=== PATIENT | male | born 1970 | race Two or more races ===

== ENCOUNTER 2021-12-16 07:02 | Emergency (ER) | payer OTHER ==
[2021-12-16 07:16] VITALS: TEMP 97.7; BMI 26.6
[2021-12-16] MEDS ORDERED: SODIUM CHLORIDE 0.9% 500 ML INFUS.BAG IV ONE ×2 (07:42→09:12)
[2021-12-16] MEDS ORDERED: ONDANSETRON 4 MG/2 ML VIAL IVPB ONE (07:42)
[2021-12-16] MEDS ORDERED: KETOROLAC TROMETHAMINE 15 MG/ML VIAL IM ONE (07:42)
[2021-12-16] MEDS ORDERED: ACETAMINOPHEN 1000 MG/100 ML BAG IVPB ONE (07:42)
[2021-12-16] MEDS ORDERED: ONDANSETRON 4 MG/2 ML VIAL ONE (08:01)
[2021-12-16] MEDS ORDERED: ACETAMINOPHEN INJECTION 100 ML IVPB ONE (08:01)
[2021-12-16 08:11] LABS: BASO % 0.4 % (0-2.0); EOS % 0.9 % (0-4.5); HEMOGLOBIN 12.2 GM/dL (11.7-16.9); LYMPH % 21.6 % (8-40); MCH 26.2 pg (25.7-33.7); MEAN CELL VOLUME 79.4 fl (80-96); MEAN PLT VOLUME 7.7 fl (7.5-11.1); MONO % 5.2 % (3.8-10.2); NEUT % 71.9 % (42.8-82.8); PLATELET COUNT 185 10^3/uL (134-434); RBC 4.66 M/mm3 (4.00-5.60); RDW 15.3 % (11.9-15.9); WHITE BLOOD COUNT 6.1 K/mm3 (4.0-10.0)
[2021-12-16 08:18] LABS: EPI CELLS 1 /uL (0-25.1); HYALINE CASTS 0 /uL (0-3.1); URINE APPEARANCE CLEAR; URINE BACTERIA 0 /uL (0-1359); URINE BILIRUBIN NEGATIVE (NEGATIVE); URINE COLOR YELLOW; URINE GLUCOSE (UA) NEGATIVE (NEGATIVE); URINE KETONE NEGATIVE (NEGATIVE); URINE LEUK ESTERASE NEGATIVE (NEGATIVE); URINE NITRITE NEGATIVE (NEGATIVE); URINE PROTEIN NEGATIVE (NEGATIVE); URINE RBC 121 /uL (0-23.9); URINE UROBILINOGEN 0.2 mg/dL (0.2-1.0); URINE WBC 2 /uL (0-25.8)
[2021-12-16 08:30] LABS: CALCIUM 8.9 mg/dL (8.5-10.1)
[2021-12-16 08:31] LABS: ALBUMIN 3.9 g/dl (3.4-5.0); BLOOD UREA NITROGEN 15.3 mg/dL (7-18)
[2021-12-16 08:34] LABS: CREATININE 1.5 mg/dL (0.55-1.3)
[2021-12-16 08:36] LABS: BILIRUBIN,TOTAL 0.5 mg/dL (0.2-1); TOT PROT 7.4 g/dl (6.4-8.2)
[2021-12-16 11:17] VITALS: BP 138/84; PULSE 85
[2021-12-16] MEDS ORDERED: KETOROLAC TROMETHAMINE 15 MG/ML VIAL IVPUSH ONE (11:53)
[2021-12-16] MEDS ORDERED: KETOROLAC TROMETHAMINE 15 MG/ML VIAL ONE (11:58)
== END 2021-12-16 13:29 | disposition home or self-care (01) ==
LOC: JER 07:02
PROC: 3E0333Z Introduction of Anti-inflammatory into Peripheral Vein, Percutaneous Approach (ICD-10-PCS; principal; 2021-12-16)
PROC: 3E033GC Introduction of Other Therapeutic Substance into Peripheral Vein, Percutaneous Approach (ICD-10-PCS; 2021-12-16)
PROC: 3E033GC Introduction of Other Therapeutic Substance into Peripheral Vein, Percutaneous Approach (ICD-10-PCS; 2021-12-16)
DX: R10.30 Lower abdominal pain, unspecified (principal); N28.89 Other specified disorders of kidney and ureter
CPT/HCPCS: 36415; 74176-TC; 74177-TC; 80053; 81003; 83690; 85025; 87086; 99284-25

== ENCOUNTER 2021-12-18 22:11 | Emergency (ER) | payer OTHER ==
[2021-12-18 22:31] VITALS: BP 142/85; PULSE 81; TEMP 98.1; BMI 29.3
[2021-12-19] MEDS ORDERED: ACETAMINOPHEN 325 MG TABLET (FP) PO ONE (00:35)
[2021-12-19] MEDS ORDERED: KETOROLAC TROMETHAMINE 30 MG/1 ML VIAL IM ONE (00:35)
[2021-12-19] MEDS ORDERED: KETOROLAC TROMETHAMINE 30 MG/1 ML VIAL ONE (01:12)
[2021-12-19] MEDS ORDERED: ACETAMINOPHEN 325 MG TABLET (FP) ONE (01:12)
== END 2021-12-19 02:31 | disposition home or self-care (01) ==
LOC: JER 22:11
PROC: 3E0233Z Introduction of Anti-inflammatory into Muscle, Percutaneous Approach (ICD-10-PCS; principal; 2021-12-18)
DX: R10.31 Right lower quadrant pain (principal)
CPT/HCPCS: 99284-25

== ENCOUNTER 2022-02-08 20:43 | Inpatient (IN) | payer OTHER ==
[2022-02-08 21:01] VITALS: BMI 28.0
[2022-02-08 22:44] LABS: BASO % 0.6 % (0-2.0); EOS % 1.1 % (0-4.5); HEMATOCRIT 32.9 % (35.4-49); HEMOGLOBIN 11.2 GM/dL (11.7-16.9); LYMPH % 27.7 % (8-40); MEAN CELL VOLUME 76.3 fl (80-96); MEAN PLT VOLUME 7.4 fl (7.5-11.1); MONO % 10.2 % (3.8-10.2); NEUT % 60.4 % (42.8-82.8); PLATELET COUNT 254 10^3/uL (134-434); RBC 4.31 M/mm3 (4.00-5.60); RDW 15.1 % (11.9-15.9); WHITE BLOOD COUNT 5.7 K/mm3 (4.0-10.0)
[2022-02-08] MEDS ORDERED: morphine CARPU-JECT 2 MG/1 ML DISP.SYRIN IVPUSH ONE (22:57)
[2022-02-08 23:04] LABS: ALBUMIN 3.6 g/dl (3.4-5.0); CALCIUM 8.9 mg/dL (8.5-10.1)
[2022-02-08 23:05] LABS: BLOOD UREA NITROGEN 10.2 mg/dL (7-18)
[2022-02-08 23:08] LABS: CREATININE 1.4 mg/dL (0.55-1.3)
[2022-02-08 23:09] LABS: BILIRUBIN,TOTAL 0.6 mg/dL (0.2-1); TOT PROT 7.7 g/dl (6.4-8.2)
[2022-02-08 23:38] LABS: ERYTHROCYTE SEDIMENTATION RATE 58 mm/hr (0-20)
[2022-02-09] MEDS ORDERED: ALLOPURINOL 100 MG TABLET (FP) PO ONE (01:26)
[2022-02-09] MEDS ORDERED: COLCHICINE 0.6 MG CAP PO ONE (01:27)
[2022-02-09] MEDS ORDERED: COLCHICINE 0.6 MG TAB ONE (01:36)
[2022-02-09 01:44] LABS: BF WBC & OTHER NUCLEATED CELLS 34982 /mm3; BODY FLUID MESOTHELIAL 9 %; BODY FLUID MONOCYTE 4 %
[2022-02-09 01:51] LABS: URIC ACID 7.2 mg/dL (2.6-7.2)
[2022-02-09] MEDS ORDERED: VANCOMYCIN 1 GM in D5W (PRE-DOCKED) 1,000 MG/250 ML IVPB ONE (03:57)
[2022-02-09] MEDS ORDERED: VANCOMYCIN 1,000 MG in DEXTROSE 5%-WATER - 250 ML IVPB ONE (04:00)
[2022-02-09] MEDS ORDERED: VANCOMYCIN 1 GRAM (PRE-DOCKED) 1,000 MG/250 ML BAG IVPB ONE (04:11)
[2022-02-09] MEDS ORDERED: DEXTROSE 5%-WATER - 50 ML IVPB ONE ×2 (09:11→17:28)
[2022-02-09] MEDS ORDERED: PIPERACILLIN/TAZOBACTAM 3.375 GM VIAL IVPB ONE ×2 (09:11→17:28)
[2022-02-09] MEDS: SODIUM CHLORIDE 1,000 ML IV SCH ×2 (09:36→16:50)
[2022-02-09] MEDS: ENOXAPARIN NA (PORCINE) 40 MG/0.4 ML DISP.SYRIN SQ SCH (09:37)
[2022-02-09] MEDS ORDERED: PIPERACILLIN/TAZOB 3.375 GM 3.375 GM in DEXTROSE 5%-WATER - 50 ML IVPB SCH (10:00)
[2022-02-09 10:52] LABS: HEMATOCRIT 30.7 % (35.4-49); HEMOGLOBIN 10.3 GM/dL (11.7-16.9); MCH 25.7 pg (25.7-33.7); MCHC 33.7 g/dl (32.0-35.9); MEAN CELL VOLUME 76.4 fl (80-96); MEAN PLT VOLUME 7.7 fl (7.5-11.1); PLATELET COUNT 244 10^3/uL (134-434); RBC 4.02 M/mm3 (4.00-5.60); RDW 14.8 % (11.9-15.9); WHITE BLOOD COUNT 3.9 K/mm3 (4.0-10.0)
[2022-02-09] MEDS ORDERED: POTASSIUM CITRATE/CITRIC ACID 2 MEQ/ML ML PO SCH (11:00)
[2022-02-09 11:16] LABS: MAGNESIUM 2.4 mg/dL (1.8-2.4)
[2022-02-09 11:17] LABS: BLOOD UREA NITROGEN 12.2 mg/dL (7-18); CALCIUM 8.8 mg/dL (8.5-10.1)
[2022-02-09 11:18] LABS: ALBUMIN 3.2 g/dl (3.4-5.0)
[2022-02-09 11:19] LABS: CREATININE 1.3 mg/dL (0.55-1.3)
[2022-02-09 11:21] LABS: PHOSPHOROUS 3.8 mg/dL (2.5-4.9)
[2022-02-09 11:22] LABS: BILIRUBIN,TOTAL 0.5 mg/dL (0.2-1)
[2022-02-09] MEDS ORDERED: COLCHICINE 0.6 MG CAP PO SCH (13:52)
[2022-02-09] MEDS ORDERED: CITRIC ACID/SODIUM CITRATE 30 ML UNIT-DOSE CUP PO ONE (15:00)
[2022-02-09] MEDS ORDERED: COLCHICINE 0.6 MG TAB PO ONE (15:00)
[2022-02-09] MEDS: VANCOMYCIN 1 GRAM (PRE-DOCKED) 1,000 MG/250 ML BAG IVPB SCH (16:50)
[2022-02-09] MEDS ORDERED: ACETAMINOPHEN 325 MG TABLET (FP) PO PRN (16:59)
[2022-02-09] MEDS: PIPERACILLIN/TAZOB 3.375 GM 3.375 GM in DEXTROSE 5%-WATER - 50 ML IVPB SCH (19:57)
[2022-02-09] MEDS: COLCHICINE 0.6 MG TAB PO SCH (21:19)
[2022-02-10] MEDS ORDERED: PIPERACILLIN/TAZOBACTAM 3.375 GM VIAL IVPB ONE ×3 (01:28→16:34)
[2022-02-10] MEDS ORDERED: DEXTROSE 5%-WATER - 50 ML IVPB ONE ×3 (01:28→16:34)
[2022-02-10] MEDS: PIPERACILLIN/TAZOB 3.375 GM 3.375 GM in DEXTROSE 5%-WATER - 50 ML IVPB SCH ×3 (02:24→17:59)
[2022-02-10] MEDS ORDERED: VANCOMYCIN 1 GM in D5W (PRE-DOCKED) 1,000 MG/250 ML IVPB SCH (04:00)
[2022-02-10] MEDS: VANCOMYCIN 1 GRAM (PRE-DOCKED) 1,000 MG/250 ML BAG IVPB SCH ×2 (04:08→17:59)
[2022-02-10] MEDS: SODIUM CHLORIDE 1,000 ML IV SCH (09:03)
[2022-02-10] MEDS: COLCHICINE 0.6 MG TAB PO SCH (09:03)
[2022-02-10] MEDS: ENOXAPARIN NA (PORCINE) 40 MG/0.4 ML DISP.SYRIN SQ SCH (09:03)
[2022-02-10 09:44] LABS: BASO % 0.5 % (0-2.0); EOS % 2.8 % (0-4.5); HEMATOCRIT 32.6 % (35.4-49); HEMOGLOBIN 10.9 GM/dL (11.7-16.9); LYMPH % 30.8 % (8-40); MCH 25.6 pg (25.7-33.7); MCHC 33.3 g/dl (32.0-35.9); MEAN PLT VOLUME 7.6 fl (7.5-11.1); MONO % 8.6 % (3.8-10.2); NEUT % 57.3 % (42.8-82.8); PLATELET COUNT 248 10^3/uL (134-434); RBC 4.23 M/mm3 (4.00-5.60); RDW 14.9 % (11.9-15.9); WHITE BLOOD COUNT 3.6 K/mm3 (4.0-10.0)
[2022-02-10] MEDS ORDERED: PIPERACILLIN/TAZOB 3.375 GM 3.375 GM in DEXTROSE 5%-WATER - 50 ML IVPB SCH (10:00)
[2022-02-10 10:08] LABS: BLOOD UREA NITROGEN 12.7 mg/dL (7-18)
[2022-02-10 10:09] LABS: CALCIUM 8.7 mg/dL (8.5-10.1); MAGNESIUM 2.3 mg/dL (1.8-2.4)
[2022-02-10 10:13] LABS: CREATININE 1.3 mg/dL (0.55-1.3)
[2022-02-11] MEDS ORDERED: VANCOMYCIN 1 GM in D5W (PRE-DOCKED) 1,000 MG/250 ML IVPB SCH (04:00)
[2022-02-11] MEDS: ENOXAPARIN NA (PORCINE) 40 MG/0.4 ML DISP.SYRIN SQ SCH (09:19)
[2022-02-11] MEDS ORDERED: COLCHICINE 0.6 MG TAB PO SCH (10:00)
[2022-02-11 13:53] VITALS: BP 126/78; PULSE 74; TEMP 98.9
[2022-02-11] MEDS ORDERED: PATIENT'S OWN MEDICATION (NON-FORMULARY) (Alfuzosin Hcl [Alfuzosin Hcl Er] 10 MG Tab.Er.24 PO SCH (18:30)
== END 2022-02-11 18:57 | disposition home or self-care (01) | DRG 351 ==
LOC: JER 20:43 → JERBED 02-09 03:17 → J7W 02-09 07:50
PROVIDERS: ADMIT Internal Medicine; ATTEND Internal Medicine
PROC: 0S9D3ZX Drainage of Left Knee Joint, Percutaneous Approach, Diagnostic (ICD-10-PCS; principal; 2022-02-08)
DX: M10.9 Gout, unspecified (principal); D64.9 Anemia, unspecified; D50.9 Iron deficiency anemia, unspecified; D72.819 Decreased white blood cell count, unspecified; N28.89 Other specified disorders of kidney and ureter
CPT/HCPCS: 0241U-QW; 36415; 71045-TC-FY; 73560-TC-LT-FY; 73610-TC-LT-FY; 73630-TC-LT; 74177-TC; 76775-TC; 80048; 80053; 82728; 82945; 83540; 83550; 83735; 84100; 84550; 84560; 85025; 85027; 85045; 85651; 86140; 86618; 87040; 87070; 87075; 87205; 87491; 87591; 89060; 93005; 93010; 97116-GP; 99285-25; Q9967

== ENCOUNTER 2022-03-02 17:53 | Emergency (ER) | payer OTHER ==
[2022-03-02 18:22] VITALS: TEMP 98.1; BMI 26.7
[2022-03-02] MEDS ORDERED: morphine CARPU-JECT 4 MG/1 ML DISP.SYRIN IVPUSH ONE (18:56)
[2022-03-02] MEDS ORDERED: ONDANSETRON 4 MG/2 ML VIAL IVPUSH ONE (18:56)
[2022-03-02] MEDS ORDERED: ACETAMINOPHEN 1000 MG/100 ML BAG IVPB ONE (18:56)
[2022-03-02] MEDS ORDERED: morphine SULFATE 4 MG/ML VIAL ONE (19:04)
[2022-03-02] MEDS ORDERED: ACETAMINOPHEN INJECTION 100 ML IVPB ONE (19:04)
[2022-03-02] MEDS ORDERED: ONDANSETRON 4 MG/2 ML VIAL ONE (19:04)
[2022-03-02 19:31] LABS: BASO % 0.3 % (0-2.0); EOS % 1.7 % (0-4.5); HEMATOCRIT 34.1 % (35.4-49); HEMOGLOBIN 11.3 GM/dL (11.7-16.9); LYMPH % 17.5 % (8-40); MCH 25.1 pg (25.7-33.7); MCHC 33.3 g/dl (32.0-35.9); MEAN CELL VOLUME 75.4 fl (80-96); MEAN PLT VOLUME 7.5 fl (7.5-11.1); MONO % 7.4 % (3.8-10.2); NEUT % 73.1 % (42.8-82.8); PLATELET COUNT 220 10^3/uL (134-434); RBC 4.52 M/mm3 (4.00-5.60); RDW 15.6 % (11.9-15.9); WHITE BLOOD COUNT 6.9 K/mm3 (4.0-10.0)
[2022-03-02 19:38] LABS: INR 1.16 (0.83-1.09); PROTHROMBIN TIME (PATIENT) 13.4 SEC (9.7-13.0)
[2022-03-02 19:41] LABS: ACTIVATED PTT 29.3 SECONDS (25.2-36.5)
[2022-03-02 19:50] LABS: EPI CELLS 1 /uL (0-25.1); HYALINE CASTS 0 /uL (0-3.1); PH,URINE 5.5 (5.0-8.0); URINE APPEARANCE CLEAR; URINE BACTERIA 0 /uL (0-1359); URINE BILIRUBIN NEGATIVE (NEGATIVE); URINE COLOR YELLOW; URINE GLUCOSE (UA) NEGATIVE (NEGATIVE); URINE KETONE NEGATIVE (NEGATIVE); URINE LEUK ESTERASE NEGATIVE (NEGATIVE); URINE NITRITE NEGATIVE (NEGATIVE); URINE PROTEIN NEGATIVE (NEGATIVE); URINE RBC 5 /uL (0-23.9); URINE UROBILINOGEN 0.2 mg/dL (0.2-1.0); URINE WBC 1 /uL (0-25.8)
[2022-03-02 20:00] LABS: ALBUMIN 3.6 g/dl (3.4-5.0); CALCIUM 8.9 mg/dL (8.5-10.1)
[2022-03-02 20:01] LABS: BLOOD UREA NITROGEN 16.6 mg/dL (7-18)
[2022-03-02 20:04] LABS: CREATININE 1.6 mg/dL (0.55-1.3)
[2022-03-02 20:05] LABS: BILIRUBIN,TOTAL 0.5 mg/dL (0.2-1); TOT PROT 7.7 g/dl (6.4-8.2)
[2022-03-02 22:44] VITALS: BP 148/80; PULSE 78; RESP 20
== END 2022-03-02 23:05 | disposition home or self-care (01) ==
LOC: JER 17:53
PROC: 3E0333Z Introduction of Anti-inflammatory into Peripheral Vein, Percutaneous Approach (ICD-10-PCS; principal; 2022-03-02)
PROC: 3E033NZ Introduction of Analgesics, Hypnotics, Sedatives into Peripheral Vein, Percutaneous Approach (ICD-10-PCS; 2022-03-02)
PROC: 3E033GC Introduction of Other Therapeutic Substance into Peripheral Vein, Percutaneous Approach (ICD-10-PCS; 2022-03-02)
DX: M54.50 Low back pain, unspecified (principal)
CPT/HCPCS: 36415; 71045-TC-FY; 74176-TC; 80053; 81003; 84484; 85025; 85610; 85730; 86850; 86900; 86901; 87086; 93005; 93010; 99285-25

== ENCOUNTER 2023-08-05 20:01 | Observation (INO) | payer OTHER ==
[2023-08-05 20:13] VITALS: RESP 18; BMI 28.1
[2023-08-06 00:08] LABS: POTASSIUM 4.9 mmol/L (3.5-5.1)
[2023-08-06 00:09] LABS: CALCIUM 9.6 mg/dL (8.5-10.1)
[2023-08-06 00:10] LABS: ALBUMIN 3.6 g/dl (3.4-5.0); BLOOD UREA NITROGEN 21.6 mg/dL (7-18)
[2023-08-06 00:13] LABS: CREATININE 1.7 mg/dL (0.55-1.3); URIC ACID 8.7 mg/dL (2.6-7.2)
[2023-08-06 00:15] LABS: BILIRUBIN,TOTAL 0.6 mg/dL (0.2-1); TOT PROT 7.8 g/dl (6.4-8.2)
[2023-08-06 01:18] LABS: BASO % 0.3 % (0-2.0); EOS % 0.2 % (0-4.5); HEMOGLOBIN 12.1 GM/dL (11.7-16.9); LYMPH % 27.9 % (8-40); MCH 25.7 pg (25.7-33.7); MCHC 32.7 g/dl (32.0-35.9); MEAN CELL VOLUME 78.4 fl (80-96); MEAN PLT VOLUME 8.1 fl (7.5-11.1); MONO % 10.8 % (3.8-10.2); NEUT % 60.8 % (42.8-82.8); PLATELET COUNT 314 10^3/uL (134-434); RBC 4.72 M/mm3 (4.00-5.60); RDW 13.7 % (11.9-15.9); WHITE BLOOD COUNT 5.9 K/mm3 (4.0-10.0)
[2023-08-06] MEDS ORDERED: IBUPROFEN 600 MG TABLET (FP) PO ONE (01:55)
[2023-08-06] MEDS ORDERED: ACETAMINOPHEN 325 MG TABLET (FP) PO ONE (01:55)
[2023-08-06] MEDS ORDERED: SODIUM CHLORIDE 0.9% 500 ML INFUS.BAG IV ONE (02:03)
[2023-08-06] MEDS ORDERED: ACETAMINOPHEN 325 MG TABLET (FP) ONE (02:36)
[2023-08-06] MEDS ORDERED: predniSONE 20 MG TABLET (UD) PO ONE (03:27)
[2023-08-06 04:01] LABS: ERYTHROCYTE SEDIMENTATION RATE 46 mm/hr (0-20)
[2023-08-06] MEDS ORDERED: predniSONE 20 MG TABLET (UD) ONE (05:06)
[2023-08-06 07:07] LABS: BASO % 0.5 % (0-2.0); EOS % 0.7 % (0-4.5); HEMATOCRIT 35.1 % (35.4-49); HEMOGLOBIN 11.5 GM/dL (11.7-16.9); LYMPH % 31.2 % (8-40); MCH 26.3 pg (25.7-33.7); MCHC 32.8 g/dl (32.0-35.9); MEAN CELL VOLUME 80.1 fl (80-96); MEAN PLT VOLUME 7.3 fl (7.5-11.1); MONO % 8.9 % (3.8-10.2); NEUT % 58.7 % (42.8-82.8); PLATELET COUNT 242 10^3/uL (134-434); RBC 4.38 M/mm3 (4.00-5.60); RDW 13.9 % (11.9-15.9); WHITE BLOOD COUNT 5.3 K/mm3 (4.0-10.0)
[2023-08-06 07:17] VITALS: PULSE 89
[2023-08-06 07:21] LABS: POTASSIUM 4.4 mmol/L (3.5-5.1)
[2023-08-06 07:22] LABS: CALCIUM 9.1 mg/dL (8.5-10.1)
[2023-08-06 07:23] LABS: ALBUMIN 3.3 g/dl (3.4-5.0); BLOOD UREA NITROGEN 19.7 mg/dL (7-18); MAGNESIUM 2.1 mg/dL (1.8-2.4)
[2023-08-06 07:27] LABS: CREATININE 1.6 mg/dL (0.55-1.3); PHOSPHOROUS 3.9 mg/dL (2.5-4.9)
[2023-08-06 07:29] LABS: BILIRUBIN,TOTAL 0.6 mg/dL (0.2-1)
[2023-08-06] MEDS ORDERED: LACTATED RINGERS SOLUTION 1,000 ML/1,000 ML INFUS.BAG IV SCH ×2 (09:15→12:30)
[2023-08-06] MEDS ORDERED: TAMSULOSIN HCL 0.4 MG CAP ONE (09:56)
[2023-08-06] MEDS ORDERED: predniSONE 20 MG TABLET (UD) PO SCH (10:00)
[2023-08-06] MEDS ORDERED: TAMSULOSIN HCL 0.4 MG CAP PO SCH (10:00)
[2023-08-06] MEDS ORDERED: oxyCODONE HCL 5 MG TABLET PO ONE (11:57)
[2023-08-06] MEDS ORDERED: ACETAMINOPHEN 1000 MG/100 ML BAG IVPB ONE (11:58)
[2023-08-06] MEDS ORDERED: ACETAMINOPHEN INJECTION 100 ML IVPB ONE (12:11)
[2023-08-06] MEDS ORDERED: oxyCODONE HCL 5 MG TABLET ONE (12:11)
[2023-08-06] MEDS ORDERED: HEPARIN NA (PORCINE) 5,000 UNITS/ML 1ML VIAL SQ SCH (14:00)
[2023-08-06 18:26] VITALS: BP 129/88; TEMP 99
[2023-08-07] MEDS ORDERED: predniSONE 20 MG TABLET (UD) PO SCH (10:00)
== END 2023-08-06 18:48 | disposition home or self-care (01) ==
LOC: JER 20:01 → JERBED 08-06 02:45
PROVIDERS: ADMIT Internal Medicine; ATTEND Internal Medicine
PROC: 3E033NZ Introduction of Analgesics, Hypnotics, Sedatives into Peripheral Vein, Percutaneous Approach (ICD-10-PCS; principal; 2023-08-06)
PROC: 3E023GC Introduction of Other Therapeutic Substance into Muscle, Percutaneous Approach (ICD-10-PCS; 2023-08-06)
PROC: 3E0337Z Introduction of Electrolytic and Water Balance Substance into Peripheral Vein, Percutaneous Approach (ICD-10-PCS; 2023-08-06)
DX: M10.9 Gout, unspecified (principal); N40.0 Benign prostatic hyperplasia without lower urinary tract symptoms; N39.9 Disorder of urinary system, unspecified; Z90.5 Acquired absence of kidney; Z98.49 Cataract extraction status, unspecified eye; N17.9 Acute kidney failure, unspecified
CPT/HCPCS: 36415; 73564-TC-RT-FY; 73590-TC-RT-FY; 80053; 83735; 84100; 84550; 85025; 85651; 93971-TC; 96361; 96372; 96374; 99285-25; G0378; J1644

== ENCOUNTER 2025-06-04 10:44 | Emergency (ER) | payer OTHER ==
[2025-06-04 10:56] VITALS: BP 125/82; PULSE 88; RESP 18; TEMP 98; BMI 25.0
[2025-06-04] MEDS ORDERED: KETOROLAC TROMETHAMINE 30 MG/1 ML VIAL ONE (11:27)
[2025-06-04] MEDS ORDERED: predniSONE 20 MG TABLET (UD) ONE (11:27)
[2025-06-04] MEDS: KETOROLAC TROMETHAMINE 30 MG/1 ML VIAL IM ONE (11:34)
[2025-06-04] MEDS: predniSONE 20 MG TABLET (UD) PO ONE (11:34)
== END 2025-06-04 13:15 | disposition home or self-care (01) ==
LOC: JERFT 10:44 → JER 10:44 → JERFT 13:15
PROC: 3E0233Z Introduction of Anti-inflammatory into Muscle, Percutaneous Approach (ICD-10-PCS; principal; 2025-06-04)
DX: M54.41 Lumbago with sciatica, right side (principal)
CPT/HCPCS: 99284-25